=== PATIENT | female | born 1975 | race Caucasian/White ===

== ENCOUNTER 2017-06-30 09:52 | Emergency (ER) | payer BC ==
[~2017-06-30] VITALS: Ht 154.9 cm; Wt 66.7 kg
[2017-06-30 10:10] VITALS: BP 117/76
== END 2017-06-30 12:00 | disposition home or self-care (01) ==
LOC: ED 09:52
DX: S60.811A Abrasion of right wrist, initial encounter (principal); S00.412A Abrasion of left ear, initial encounter; S10.91XA Abrasion of unspecified part of neck, initial encounter; W54.0XXA Bitten by dog, initial encounter; Y93.89 Activity, other specified; Y99.8 Other external cause status; Y92.89 Other specified places as the place of occurrence of the external cause